=== PATIENT | female | born 1985 | race Caucasian/White ===

== ENCOUNTER 2018-01-23 07:39 | Inpatient (IN) ==
[2018-01-23] MEDS ORDERED: Sod Chloride 0.9% Inj 1,000 ML IV.CONT PRN (08:38)
[2018-01-23] MEDS ORDERED: Oxytocin 30 Units/500ml Premix 30 UNITS/500 ML BAG IV.SIG ONE (08:38)
[2018-01-23] MEDS ORDERED: Naloxone Inj 0.4 MG/ML Vial IV.PUSH PRN ×2 (08:38→21:47)
[2018-01-23] MEDS ORDERED: Sodium Chlor 0.9% Inj 500 ML IV.SIG PRN (08:38)
[2018-01-23] MEDS ORDERED: fentaNYL Citrate Inj 100 MCG/2 ML Ampul IV.PUSH PRN ×2 (08:38)
[2018-01-23] MEDS ORDERED: Oxytocin 30 Units/500ml Premix 30 UNITS/500 ML BAG IV.CONT PRN ×2 (08:39→21:47)
[2018-01-23] MEDS ORDERED: Citric Acid/Sodium Citrate Liq 30 ML UDC PO SCH (08:45)
--- NOTE | 2018-01-23 08:46 | P.HPOB ---
History of Present Illness Primary Care Physician: No Primary Care Physician care with Gilma Mendes Chief Complaint: I am here for pain management History of Present Illness: 32-year-old at 41+ weeks presents for pain management. Patient attempted a trial of labor at home for the last 22 hours without any success. At this point patient is amiable to induction of labor does not want to be discharged. Past OB history noncontributory Past EMERGENCY MEDICAL TECHNICIAN BASIC history denies Past medical history denies Allergies latex Past surgical history denies Weeks Gestation:: 41 Para: 0 : 1 - Inpatient Certification I certify that the inpatient services were ordered in accordance with Medicare regulations governing the order. 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 Stop: 01/27/18 08:44 Fentanyl Citrate (Fentanyl Inj) 50 mcg IV.PUSH Q1H PRN PRN Reason: Pain Scale 3 - 5 Fentanyl Citrate (Fentanyl Inj) 100 mcg IV.PUSH Q1H PRN PRN Reason: PAIN SCALE 6 TO 10 Lactated Ringer's (Lr 1000 Ml Inj) 1,000 mls @ 3,000 mls/hr IV.SIG UNSCH PRN PRN Reason: compromise or epidural Lactated Ringer's (Lr 1000 Ml Inj) 1,000 mls @ 125 mls/hr IV.CONT .Q8H JONES Sodium Chloride (Ns Inj) 500 mls @ 1,000 mls/hr IV.SIG UNSCH PRN PRN Reason: SEE LABEL COMMENTS Sodium Chloride (Ns Inj) 1,000 mls @ 100 mls/hr IV.CONT .Q10H PRN PRN Reason: SEE LABEL COMMENTS Oxytocin (Pitocin 30 Units/Ns 500 Ml Premix) 30 units in 500 mls @ 999 mls/hr IV.SIG BOLUS ONE Stop: 01/23/18 09:08 Oxytocin (Pitocin 30 Units/Ns 500 Ml Premix) 30 units in 500 mls @ 1 mls/hr IV.CONT TITRATE PRN; Protocol PRN Reason: For induction of labor Lidocaine HCl (Xylocaine 1% Inj) 0.1 ml I-DERMAL PRN PRN PRN Reason: For IV start Stop: 01/26/18 08:37 Lidocaine HCl (Xylocaine 1% Inj) 10 ml INFILTRATN PRN PRN PRN Reason: For episiotomy repair Stop: 01/25/18 08:37 Mineral Oil (Muri-Lube Oil) 10 ml TOPICAL PRN PRN PRN Reason: PRN perineal massage Naloxone HCl (Narcan Inj) 0.1 mg IV.PUSH Q2M PRN PRN Reason: for opiate reversal Allergies Allergy/AdvReac Type Severity Reaction Status Date / Time latex Allergy Rash Verified 01/23/18 08:36 Exam Vital signs: Intake & Output 01/22/18 01/23/18 01/23/18 18:59 06:59 18:59 Weight 78.471 kg Other: Weight On Admission 78.471 kg Narrative: GENERAL: Well-nourished, well-developed patient. SKIN: Warm and dry. HEAD: Normocephalic and atraumatic. EYES: No scleral icterus. No injection or drainage. ENT: No nasal drainage noted. Mucous membranes pink. Airway patent. NECK: Supple, trachea midline. No JVD. CARDIOVASCULAR: Regular rate and rhythm without murmurs, gallops, or rubs. RESPIRATORY: Breath sounds equal bilaterally. No accessory muscle use. BREASTS: Bilateral exam showed no masses , no retractions, no nipple discharge. ABDOMEN/GI: Abdomen soft, non-tender, bowel sounds present, no rebound, no guarding Gravid to 40 weeks size Fundal Height: 40 GENITOURINARY: External Genitalia: intact and normal in appearance BUS glands: Unremarkable Cervix: Soft Dilatation: 2 Effacement: 100% Station: -2 Presentation: Vertex Membranes: Intact Uterine Contractions: Palpable FHT's: heart tones are present-NST in progress EXTREMITIES: No cyanosis or edema. BACK: Nontender without obvious deformity. No CVA tenderness. NEUROLOGICAL: Awake and alert. Motor and sensory grossly within normal limits. Five out of 5 muscle strength in all muscle groups. Normal speech. Caprini VTE Risk Assessment Caprini VTE Risk Assessment: No/Low Risk (score <= 1) Caprini Risk Assessment Model: Point Value = 1 Point Value = 2 Point Value = 3 Point Value = 5 Age 41-60 Minor surgery BMI > 25 kg/m2 Swollen legs Varicose veins or History of unexplained or recurrent spontaneous Oral contraceptives or hormone replacement Sepsis (< 1 month) Serious lung disease, including pneumonia (< 1 month) Abnormal pulmonary function Acute myocardial infarction Congestive heart failure (< 1 month) History of inflammatory bowel disease Medical patient at bed rest Age 61-74 Arthroscopic surgery Major open surgery (> 45 min) Laparoscopic surgery (> 45 min) Malignancy Confined to bed (> 72 hours) Immobilizing plaster cast Central venous access Age >= 75 History of VTE Family history of VTE Factor V Leiden Prothrombin [id number] Lupus anticoagulant Anticardiolipin antibodies Elevated serum homocysteine Heparin-induced thrombocytopenia Other congenital or acquired thrombophilia Stroke (< 1 month) Elective arthroplasty Hip, pelvis, or leg fracture Acute spinal cord injury (< 1 month) Prophylaxis Regimen: Total Risk Factor Score Risk Level Prophylaxis Regimen 0-1 Low Early ambulation 2 Moderate Order ONE of the following: *Sequential Compression Device (SCD) *Heparin 5000 units SQ BID 3-4 Higher Order ONE of the following medications: *Heparin 5000 units SQ TID *Enoxaparin/Lovenox 40 mg SQ daily (WT < 150 kg, CrCl > 30 mL/min) *Enoxaparin/Lovenox 30 mg SQ daily (WT < 150 kg, CrCl > 10-29 mL/min) *Enoxaparin/Lovenox 30 mg SQ BID (WT < 150 kg, CrCl > 30 mL/min) AND/OR *Sequential Compression Device (SCD) 5 or more Highest Order ONE of the following medications: *Heparin 5000 units SQ TID (Preferred with Epidurals) *Enoxaparin/Lovenox 40 mg SQ daily (WT < 150 kg, CrCl > 30 mL/min) *Enoxaparin/Lovenox 30 mg SQ daily (WT < 150 kg, CrCl > 10-29 mL/min) *Enoxaparin/Lovenox 30 mg SQ BID (WT < 150 kg, CrCl > 30 mL/min) AND *Sequential Compression Device (SCD) Assessment and Plan - Diagnosis (1) Dysfunctional labor Code(s): O62.9 - Abnormality of forces of labor, unspecified Status: Acute (2) Encounter for induction of labor Code(s): Z34.90 - Encounter for supervision of normal , unspecified, unspecified trimester Status: Acute (3) Postmaturity , 40-42 weeks gestation Code(s): O48.0 - Post-term Status: Acute - Plan Discussed with the patient at this time she is not in labor, suspect protracted latent phase. Patient agrees to induction of labor. Would like to try IV pain management first but leaving her options open
[2018-01-23 09:40] LABS: Baso % (Auto) 0.2 % (0.0-2.0); Eos % (Auto) 0.1 % (0.0-4.0); Hematocrit 33.1 % (35.0-46.0); Hemoglobin 10.7 gm/dL (11.6-15.3); Lymph # (Auto) 1.2 th/mm3 (1.0-4.8); Lymph % (Auto) 8.2 % (9.0-44.0); Mean Corpuscular HGB Conc 32.3 % (32.0-36.0); Mean Corpuscular Hemoglobin 25.2 pg (27.0-34.0); Mean Corpuscular Volume 78.1 fL (80.0-100.0); Mean Platelet Volume 8.5 fL (7.0-11.0); Mono # (Auto) 0.9 th/mm3 (0.0-0.9); Neut # (Auto) 12.7 th/mm3 (1.8-7.7); Neut % (Auto) 85.5 % (16.0-70.0); Platelet Count 281 th/mm3 (150-450); Red Blood Count 4.24 mil/mm3 (4.00-5.30); Red Cell Distribution Width 16.8 % (11.6-17.2); White Blood Count 14.8 th/mm3 (4.0-11.0)
[2018-01-23] MEDS ORDERED: fentaNYL 2MCG-Bupiv 0.125% Epi 150 ML EPIDURAL ONE (11:04)
--- NOTE | 2018-01-23 11:10 | P.OBLABOR ---
Subjective Interval history: Patient is feeling her contractions. She had just received fentanyl and that is helping her with her pain. Objective Vital Signs: Vital Signs - 8 hr 01/23/18 08:45 Temperature 97.7 F Pulse Rate 52 L Respiratory Rate 18 Blood Pressure 130/77 Objective: Pelvic Exam: Cervix: Midline Dilatation: 5 Effacement: 100% Station: +1 Presentation: Vertex Membranes: Artificially ruptured at 11 AM Uterine Contractions: Q4 to 5 minute FHT's: Category: 1 Baseline: 115 Reactive: yes Variability: moderate Decels: variable Artificial Rupture of Membrane: Yes (Artificial rupture of membrane at 11 AM ) Assessment and Plan - Plan Continue to monitor the patient's labor. Hopefully the patient will progress on her own but if not we will consider Pitocin at next cervical check.
[2018-01-23] MEDS ORDERED: fentaNYL 2MCG-Bupiv 0.125% Epi 150 ML EPIDURAL PRN (12:26)
[2018-01-23] MEDS ORDERED: fentaNYL Citrate Inj 100 MCG/2 ML Ampul EPIDURAL ONE (12:26)
--- NOTE | 2018-01-23 15:03 | P.OBLABOR ---
Objective Vital Signs: Vital Signs - 8 hr 01/23/18 08:45 01/23/18 10:47 01/23/18 11:00 Temperature 97.7 F Pulse Rate 52 L 66 Respiratory Rate 18 18 Blood Pressure 130/77 116/65 01/23/18 11:24 01/23/18 11:36 01/23/18 11:42 Temperature Pulse Rate 79 81 80 Respiratory Rate 18 18 Blood Pressure 131/69 117/66 128/54 L 01/23/18 12:00 01/23/18 12:30 01/23/18 12:45 Temperature 97.5 F L Pulse Rate Respiratory Rate 16 16 Blood Pressure 01/23/18 12:50 01/23/18 13:15 01/23/18 13:25 Temperature Pulse Rate 78 72 113 H Respiratory Rate 16 16 Blood Pressure 101/47 L 98/68 L 01/23/18 13:30 01/23/18 13:43 01/23/18 14:00 Temperature 98.2 F Pulse Rate 96 H 88 Respiratory Rate 16 Blood Pressure 113/79 110/63 01/23/18 14:44 Temperature Pulse Rate 108 H Respiratory Rate 16 Blood Pressure 103/64 Objective: Pelvic Exam: Cervix: midline Dilatation: 8-9 Effacement: 100 Station: -1 Presentation: vertex Membranes: ruptured Uterine Contractions: Q3 min FHT's: Category: 1 Baseline: 130 Reactive: yes Variability: moderate Decels: none Artificial Rupture of Membrane: Yes (11AM) Assessment and Plan - Plan Continue to monitor the patient's labor-progressing well. Continue current plan.
[2018-01-23] MEDS ORDERED: Measles/Mumps/Rubella Vaccine Inj 0.5 ML Vial SQ ONE (16:00)
[2018-01-23] MEDS ORDERED: Diphtheria/Tetanus/Pertussis Vaccine Inj 0.5 ML Syringe IM ONE (16:00)
[2018-01-23] MEDS ORDERED: Acetaminophen 325 MG Tablet PO PRN (17:05)
[2018-01-23] MEDS: Gentamicin/NS 80 mg Premix 100 ML IV.SIG SCH (18:22)
[2018-01-23 21:09] LABS: Amorphous Sediment,Urine Few /hpf; Bacteria,Urine Occasional /hpf; Bilirubin,Urine Negative (Negative); Clarity,Urine Hazy (Clear); Color,Urine Yellow (Yellw/Straw); Glucose,Urine (UA) Negative (Negative); Leukocyte Esterase,Urine Negative (Negative); Mucus,Urine Few /lpf (Occasional); Nitrite,Urine Negative (Negative); Specific Gravity,Urine 1.011 (1.002-1.035); Squamous Epithelial Cell,Urine 2 /hpf (0-5); Transitional Epi Cells,Urine 1 /hpf
[2018-01-23] MEDS ORDERED: Lidocaine 1% Inj 50 ML Vial ONE (21:13)
[2018-01-23] MEDS ORDERED: Zolpidem Tartrate 5 MG Tablet PO PRN (21:47)
[2018-01-23] MEDS ORDERED: Witch Hazel 50%/Glyderin 12.5% 40 Pad Jar RECTAL PRN (21:47)
[2018-01-23] MEDS ORDERED: Benzocaine 20% Top Spray 60 ML Can TOPICAL PRN (21:47)
--- NOTE | 2018-01-23 21:52 | P.OBDELI ---
Weeks Gestation: 41 Patient Started Active Labor: Yes Active Labor Start Date: 01/22/18 Medical Induction of Labor: No Anesthesia: Epidural, Lidocaine local to perineum Episiotomy: none Vaginal Delivery: Normal, Spontaneous Presentation: Occiput anterior, Vertex Nuchal Cord: None Delayed Cord Clamping (45 sec): Yes Placenta: Spontaneous delivery Laceration: 2 deg Repair: Chromic running Estimated blood loss (mL): 100 Infant: Female Female B Infant Delivery Date: 01/23/18 Infant Delivery Time: 21:21 Weight: 4.125 kg score (1 min): 8 score (5 min): 8 Additional Information: Elevated heart rate, maternal temperature: Chorioamnionitis. Ampicillin and gentamicin to be continued for at least 24 hours post delivery Delivered by Dr. Steen, Supervised by Dr. Rinaldi.
[2018-01-24] MEDS: Gentamicin/NS 80 mg Premix 100 ML IV.SIG SCH ×2 (01:35→09:28)
[2018-01-24] MEDS: Acetaminophen 325 MG Tablet PO PRN ×4 (06:29→23:49)
--- NOTE | 2018-01-24 09:04 | P.PNOB ---
Subjective Post day: 1 Interval history: Patient is a 32-year-old G 1 P 1 delivered at 41+ weeks. Patient is day 1 after spontaneous vaginal delivery. Patient's pain is well-controlled. Patient reports eating and drinking without any nausea or vomiting. Patient reports minimal bleeding. Patient has passed gas but no bowel movements. Patient is walking without lower extremity pain or shortness of breath. Patient reports desire breast-feeding. She reports that she will be using condoms until her gets a vasectomy. Objective Vital Signs/I&O: Vital Signs 01/23/18 10:47 01/23/18 11:00 01/23/18 11:24 Temperature Pulse Rate 66 79 Respiratory Rate 18 18 Blood Pressure 116/65 131/69 01/23/18 11:36 01/23/18 11:42 01/23/18 12:00 Temperature 97.5 F L Pulse Rate 81 80 Respiratory Rate 18 Blood Pressure 117/66 128/54 L 01/23/18 12:30 01/23/18 12:45 01/23/18 12:50 Temperature Pulse Rate 78 Respiratory Rate 16 16 Blood Pressure 101/47 L 01/23/18 13:15 01/23/18 13:25 01/23/18 13:30 Temperature 98.2 F Pulse Rate 72 113 H Respiratory Rate 16 16 Blood Pressure 98/68 L 01/23/18 13:43 01/23/18 14:00 01/23/18 14:44 Temperature Pulse Rate 96 H 88 108 H Respiratory Rate 16 16 Blood Pressure 113/79 110/63 103/64 01/23/18 15:01 01/23/18 16:15 01/23/18 17:00 Temperature 101.8 F H Pulse Rate 98 H 105 H Respiratory Rate 16 16 Blood Pressure 105/56 L 103/80 01/23/18 17:01 01/23/18 17:42 01/23/18 18:25 Temperature 102.1 F H Pulse Rate 136 H Respiratory Rate 16 16 Blood Pressure 129/108 H 01/23/18 18:31 18 18:45 01/23/18 19:15 Temperature Pulse Rate 82 102 H Respiratory Rate 16 18 Blood Pressure 122/60 117/86 01/23/18 19:31 01/23/18 19:45 01/23/18 19:48 Temperature 101.0 F H Pulse Rate 80 Respiratory Rate 18 18 Blood Pressure 114/45 L 01/23/18 21:45 01/23/18 21:50 01/23/18 22:05 Temperature 98.3 F Pulse Rate 115 H 103 H Respiratory Rate 18 20 20 Blood Pressure 140/61 115/48 L 01/23/18 22:20 01/23/18 22:21 01/23/18 22:35 Temperature Pulse Rate 78 Respiratory Rate 20 18 Blood Pressure 116/42 L 01/23/18 23:05 01/23/18 23:20 01/23/18 23:50 Temperature 97.9 F Pulse Rate 82 72 Respiratory Rate 18 20 20 Blood Pressure 119/53 L 115/63 01/24/18 08:00 Temperature 97.8 F Pulse Rate 62 Respiratory Rate 20 Blood Pressure 109/63 Intake & Output 01/23/18 01/24/18 01/24/18 18:59 06:59 18:59 Intake Total 1200 / 1200 100 / 100 Balance 1200 / 1200 100 / 100 Weight 78.471 kg Intake: IV 1200 / 1200 100 / 100 LR 1000 mL Inj 1,000 ML @ 125 1000 / 1000 mls/hr IV.CONT .Q8H JONES Rx#: [id number] Ampicillin Inj 2,000 MG In NS 100 / 100 100 / 100 Inj 100 ML @ 400 mls/hr IV.SIG Q6H JONES Rx#:[id number] Gentamicin/NS 80 mg Premix 100 100 / 100 ML @ 200 mls/hr IV.SIG Q8H JONES Rx#:[id number] Other: Weight On Admission 78.471 kg Result Diagrams: 01/23/18 09:00 Objective Remarks: GENERAL: Well-nourished, well-developed patient. CARDIOVASCULAR: Regular rate and rhythm without murmurs, gallops, or rubs. RESPIRATORY: Breath sounds equal bilaterally. No accessory muscle use. ABDOMEN/GI: Abdomen soft, mild tender. Fundus: Firm, mildly tender at umbilicus. GENITOURINARY: Light to moderate bleeding. EXTREMITIES: Slight pedal edema, no cyanosis, non-tender, without signs of DVT. Medications and IVs: Active Medications Acetaminophen (Tylenol) 650 mg PO Q4H PRN PRN Reason: PAIN SCALE 1 TO 2 Last Admin: 01/24/18 06:29 Dose: 650 mg Al Hydroxide/Mg Hydroxide (Milk Of Magnesia Liq) 30 ml PO Q12H PRN PRN Reason: Mild Constipation Benzocaine (Americaine 20% Top [place]) 1 spray TOPICAL Q4H PRN PRN Reason: For Perineum Discomfort Ephedrine Sulfate (Ephedrine/Ns Syringe) 10 mg IV.PUSH UNSCH PRN PRN Reason: SEE LABEL COMMENTS Stop: 01/24/18 12:27 Last Admin: 01/23/18 14:14 Dose: 10 mg Fentanyl/Bupivacaine/Sodium Chlor (Fentanyl 2 Mcg-Bupiv 0.125% Epi) 150 mls @ 4 mls/hr EPIDURAL PRN PRN PRN Reason: for Labor Pain Ampicillin Sodium 2,000 mg/ (Sodium Chloride) 100 mls @ 400 mls/hr IV.SIG Q6H JONES Last Admin: 01/24/18 05:58 Dose: 400 mls/hr Gentamicin Sulfate/Sodium Chloride (Gentamicin/Ns 80 Mg Premix) 100 mls @ 200 mls/hr IV.SIG Q8H JONES Last Admin: 01/24/18 01:35 Dose: 200 mls/hr Oxytocin (Pitocin 30 Units/Ns 500 Ml Premix) 30 units in 500 mls @ 100 mls/hr IV.CONT UNSCH PRN PRN Reason: Heavy bleeding Ibuprofen (Motrin) 800 mg PO Q8H PRN PRN Reason: For Cramping Last Admin: 01/24/18 06:30 Dose: 800 mg Miscellaneous Information (Misc Information) 1 each OTHER UNSCH PRN PRN Reason: SEE LABEL COMMENTS Stop: 01/24/18 12:27 Miscellaneous Information (Misc Information) 1 each OTHER UNSCH PRN PRN Reason: SEE LABEL COMMENTS Stop: 01/24/18 12:27 Naloxone HCl (Narcan Inj) 0.1 mg IV.PUSH Q2M PRN PRN Reason: for opiate reversal Ondansetron HCl (Zofran Odt) 4 mg PO Q6H PRN PRN Reason: NAUSEA OR VOMITING Oxycodone/Acetaminophen (Percocet 5/325 Mg) 1 tab PO Q4H PRN PRN Reason: PAIN SCALE 3 TO 5 Oxycodone/Acetaminophen (Percocet 5/325 Mg) 2 tab PO Q4H PRN PRN Reason: PAIN SCALE 6 TO 10 Senna/Docusate Sodium (Skylar-Colace) 1 tab PO BID JONES Sennosides (Senokot) 17.2 mg PO Q12H PRN PRN Reason: Moderate Constipation Sodium Chloride (Ns Flush) 2 ml IV.FLUSH BID JONES Sodium Chloride (Ns Flush) 2 ml IV.FLUSH PRN PRN PRN Reason: FLUSH AFTER USING IV ACCESS Witch Saniya/Glycerin (Tucks Pads) 1 applicatio RECTAL QID PRN PRN Reason: HEMORRHOIDS Zolpidem Tartrate (Ambien) 5 mg PO HS PRN PRN Reason: SLEEP Assessment and Plan - Plan Patient is a 32-year-old G 1 P 1 delivered at 40+ weeks. Patient is day 1 after spontaneous vaginal delivery. Patient was counseled to do 6 weeks of pelvic rest. Patient was counseled to follow up in 6 weeks. --AF VSS --Continue routine care --Motrin when necessary for pain --Encourage OOB --Pelvic rest for 6 weeks will need follow-up appointment at that time. --Contraception: Patient will use condoms until her has a vasectomy --Anticipate discharge tomorrow
[2018-01-24] MEDS: Senna/Docusate Sodium 8.6/50 MG Tablet PO SCH ×2 (09:28→23:51)
[2018-01-25] MEDS: Acetaminophen 325 MG Tablet PO PRN ×2 (05:00→16:43)
[2018-01-25 08:17] VITALS: BP 105/61; PULSE 61; RESP 20; TEMP 97.6
--- NOTE | 2018-01-25 08:39 | P.OBLABOR ---
Objective Vital Signs: Vital Signs - 8 hr 01/25/18 08:00 Temperature 97.6 F Pulse Rate 61 Respiratory Rate 20 Blood Pressure 105/61 Objective: Pelvic Exam: Cervix: [-] Dilatation: [-] Effacement: [-] Station: [-] Presentation: [-] Membranes: [intact or ruptured] Uterine Contractions: [-] FHT's: Category: [-] Baseline: [-] Reactive: [-] Variability: [-] Decels: [-] Assessment and Plan - Plan Patient is a 32-year-old G 1 P 1 delivered at 40+ weeks. Patient is day 1 after spontaneous vaginal delivery. Patient was counseled to do 6 weeks of pelvic rest. Patient was counseled to follow up in 6 weeks. --AF VSS --Continue routine care --Motrin when necessary for pain --Encourage OOB --Pelvic rest for 6 weeks will need follow-up appointment at that time. --Contraception: Patient will use condoms until her has a vasectomy --Anticipate discharge tomorrow
--- NOTE | 2018-01-25 10:01 | P.PNOB ---
Subjective Post day: 2 Interval history: Patient is a 32-year-old G 1 P 1 delivered at 41+ weeks. Patient is day 2 after spontaneous vaginal delivery. Patient's pain is well-controlled. Patient reports eating and drinking without any nausea or vomiting. Patient reports minimal bleeding. Patient has passed gas but no bowel movements. Patient is walking without lower extremity pain or shortness of breath. Patient reports desire breast-feeding. She reports that she will be using condoms until her gets a vasectomy. Objective Vital Signs/I&O: Vital Signs 01/24/18 20:00 01/25/18 08:00 Temperature 98.3 F 97.6 F Pulse Rate 76 61 Respiratory Rate 18 20 Blood Pressure 117/66 105/61 Intake & Output 01/24/18 01/25/18 01/25/18 18:59 06:59 18:59 Intake Total 200 / 200 Balance 200 / 200 Intake: IV 200 / 200 Ampicillin Inj 2,000 MG In NS 100 / 100 Inj 100 ML @ 400 mls/hr IV.SIG Q6H JONES Rx#:[id number] Gentamicin/NS 80 mg Premix 100 100 / 100 ML @ 200 mls/hr IV.SIG Q8H JONES Rx#:[id number] Result Diagrams: 01/23/18 09:00 Objective Remarks: GENERAL: Well-nourished, well-developed patient. CARDIOVASCULAR: Regular rate and rhythm without murmurs, gallops, or rubs. RESPIRATORY: Breath sounds equal bilaterally. No accessory muscle use. ABDOMEN/GI: Abdomen soft, non-tender. Fundus: Firm, non-tender at umbilicus. GENITOURINARY: moderate bleeding. swelling of labia. EXTREMITIES: No cyanosis or edema, non-tender, without signs of DVT. Medications and IVs: Active Medications Acetaminophen (Tylenol) 650 mg PO Q4H PRN PRN Reason: PAIN SCALE 1 TO 2 Last Admin: 01/25/18 05:00 Dose: 650 mg Al Hydroxide/Mg Hydroxide (Milk Of Magnesia Liq) 30 ml PO Q12H PRN PRN Reason: Mild Constipation Benzocaine (Americaine 20% Top [place]) 1 spray TOPICAL Q4H PRN PRN Reason: For Perineum Discomfort Fentanyl/Bupivacaine/Sodium Chlor (Fentanyl 2 Mcg-Bupiv 0.125% Epi) 150 mls @ 4 mls/hr EPIDURAL PRN PRN PRN Reason: for Labor Pain Oxytocin (Pitocin 30 Units/Ns 500 Ml Premix) 30 units in 500 mls @ 100 mls/hr IV.CONT UNSCH PRN PRN Reason: Heavy bleeding Ibuprofen (Motrin) 800 mg PO Q8H PRN PRN Reason: For Cramping Last Admin: 01/24/18 23:51 Dose: 800 mg Naloxone HCl (Narcan Inj) 0.1 mg IV.PUSH Q2M PRN PRN Reason: for opiate reversal Ondansetron HCl (Zofran Odt) 4 mg PO Q6H PRN PRN Reason: NAUSEA OR VOMITING Oxycodone/Acetaminophen (Percocet 5/325 Mg) 1 tab PO Q4H PRN PRN Reason: PAIN SCALE 3 TO 5 Oxycodone/Acetaminophen (Percocet 5/325 Mg) 2 tab PO Q4H PRN PRN Reason: PAIN SCALE 6 TO 10 Senna/Docusate Sodium (Skylar-Colace) 1 tab PO BID [facility] Last Admin: 01/24/18 23:51 Dose: 1 tab Sennosides (Senokot) 17.2 mg PO Q12H PRN PRN Reason: Moderate Constipation Sodium Chloride (Ns Flush) 2 ml IV.FLUSH BID [facility] Last Admin: 01/24/18 23:54 Dose: Not Given Sodium Chloride (Ns Flush) 2 ml IV.FLUSH PRN PRN PRN Reason: FLUSH AFTER USING IV ACCESS Witch Saniya/Glycerin (Tucks Pads) 1 applicatio RECTAL QID PRN PRN Reason: HEMORRHOIDS Zolpidem Tartrate (Ambien) 5 mg PO HS PRN PRN Reason: SLEEP Assessment and Plan - Diagnosis (1) Normal course Code(s): Z39.2 - Encounter for routine follow-up Status: Acute - Plan Patient is a 32-year-old G 1 P 1 delivered at 40+ weeks. Patient is day 2 after spontaneous vaginal delivery. Patient was counseled to do 6 weeks of pelvic rest. Patient was counseled to follow up in 6 weeks. --AF VSS. Patient has remained afebrile since discontinuing the amp and gent on . --Continue routine care --Motrin when necessary for pain --Encourage OOB --Pelvic rest for 6 weeks will need follow-up appointment at that time. --Contraception: Patient will use condoms until her has a vasectomy --Discharge today - Attending Attestation The exam, history, and the medical decision-making described in the above note were completed with the assistance of the resident physician. I reviewed and agree with the findings presented. I attest that I had a [id number] encounter with the patient on the same day, and personally performed and documented my assessment and findings in the medical record.
[2018-01-25] MEDS: Senna/Docusate Sodium 8.6/50 MG Tablet PO SCH (18:37)
== END 2018-01-25 19:43 | disposition home or self-care (01) ==
LOC: H2E 07:39 → H1EA 23:55
PROVIDERS: ADMIT Obstetrics & Gynecology; ATTEND Obstetrics & Gynecology